=== PATIENT | male | born 1965 | race Caucasian/White ===

== ENCOUNTER 2017-02-14 14:28 | Inpatient (IN) | payer OTHER ==
[~2017-02-14] VITALS: Ht 185.4 cm; Wt 172.0 kg
[~2017-02-14 14:28] MED LIST: AMBIEN10 MG PO; CELEXA40 MG PO; CITALOPRAM HBR40 MG PO; COUMADIN10 MG PO; COZAAR50 MG PO; CRESTOR10 MG PO; Colace PO; Coumadin,Jantoven PO; Cozaar PO; DILTIAZEM 24HR240 M1 PO; GLUCOPHAGE500 MG PO; K-DUR20 MEQ PO; LASIX40 MG PO; Levaquin PO; Milk Of Magnesia,MOM PO; NATURAL VITAMI500 MG PO; NOVOLOG PE100 UNITS/ SC; Nitrostat,NitroQuick SL; SIMVASTATIN10 MG PO; Senokot,Sennagen PO; TOPAMAX100 MG PO; TOPAMAX200 MG PO; TOPIRAGEN200 MG PO; TRICOR145 MG PO; Topamax PO; Toprol XL PO; VITAMIN C500 M1 PO; VITAMIN D; VITAMIN D-32000 UNIT PO; VITAMIN D400 UNI1 PO; WARFARIN SODIUM10 MG PO; WARFARIN SODIUM5 MG PO; Warfarin Sodium PO; ZOCOR10 MG PO; Zocor PO; celeXA PO
[2017-02-14] MEDS ORDERED: TOPAMAX200 MG PO (15:22)
[2017-02-14] MEDS ORDERED: TOPAMAX100 MG PO (15:23)
[2017-02-14] MEDS ORDERED: LOSARTAN POTAS100 MG PO (15:23)
[2017-02-14] MEDS ORDERED: CITALOPRAM HBR40 MG PO (15:24)
[2017-02-14] MEDS ORDERED: CARVEDILOL12.5 MG PO (15:24)
[2017-02-14] MEDS ORDERED: FUROSEMIDE20 MG PO (15:24)
[2017-02-14] MEDS ORDERED: BYSTOLIC20 MG PO (15:25)
[2017-02-14] MEDS ORDERED: JANUVIA100 MG PO (15:25)
[2017-02-14] MEDS ORDERED: INVOKANA300 MG PO (15:25)
[2017-02-14] MEDS ORDERED: WARFARIN SODIUM5 MG PO (15:26)
[2017-02-14] MEDS ORDERED: JANTOVEN5 MG PO (15:26)
[2017-02-14 15:32] LABS: BASOPHIL COUNT 0.1 K/uL (0-0.1); EOSINOPHIL (%) 0 % (0-5); HEMATOCRIT 50.4 % (38.0-50.0); IMMATURE GRANULOCYTE (%) 1.5 % (0.0-0.7); IMMATURE GRANULOCYTE COUNT 0.3 K/uL; INSTRUMENT ABS NEUTROPHIL CT 15.5 K/uL; LYMPHOCYTE COUNT 1.1 K/uL (1.0-2.8); MCH 28.6 PG (29.0-34.0); MCHC 31.9 G/DL (30.0-36.0); MCV 89.5 FL (86-99); MEAN PLAT.VOLUME 11.8 uM^3 (9.0-12.4); MONOCYTE (%) 7.4 % (3-12); MONOCYTE COUNT 1.4 K/uL (0-0.8); NEUTROPHIL (%) 84.5 % (45-76); NEUTROPHIL COUNT 15.5 K/uL (1.8-6.4); PLATELET COUNT 302 K/uL (156-360); RBC DIS.WIDTH-CV 13.8 % (11.8-14.6); RBC DIS.WIDTH-SD 45.5 % (39-53); RED BLOOD COUNT 5.63 M/uL (4.00-5.50); WHITE BLOOD COUNT 18.3 K/uL (4.1-10.2)
[2017-02-14 15:43] LABS: CHLORIDE 109 mEq/L (99-109); POTASSIUM 3.7 mEq/L (3.7-5.4); SODIUM 138 mEq/L (136-147)
[2017-02-14 15:45] LABS: GLUCOSE 156 mg/dL (70-99)
[2017-02-14 15:46] LABS: ANION GAP 9 MEQ/L (2-14)
[2017-02-14 15:49] LABS: GFR ESTIMATE (CALCULATED) > 59 mL/min/; UREA NITROGEN (BUN) 26 mg/dL (9-23)
[2017-02-14 17:09] LABS: C DIFF TOXIN NEGATIVE (NEGATIVE)
[2017-02-14 17:10] LABS: PROBE CHECK PASS; SPECIMEN PROCESSING CONTROL PASS
[2017-02-14 17:13] LABS: ADD MIUA? NO; BILIRUBIN NEGATIVE; BLOOD NEGATIVE; COLOR YELLOW ((YELLOW)); GLUCOSE (STRIP) >=500; KETONES NEGATIVE; LEUKOCYTES NEGATIVE; NITRITE NEGATIVE; PROTEIN (STRIP) NEGATIVE; SPECIFIC GRAVITY 1.032 (1.000-1.030); UCUL ADDED? NO; UROBILINOGEN 0.2 MG/DL (0.2-1.0)
[2017-02-14 22:54] LABS: BASE EXCESS -3.5 mEq/L (-3 to +3); BICARBONATE 22.1 mEq/L (22-26); CARBOXY HGB 1.8 % (0-5); COMMENTS - BLOOD GASES C+A+; DEVICE NC; METHEMOGLOBIN 1.3 % (0-1.5); O2 FLOW 1 L/MIN; PCO2 41 mm Hg (35-45); PO2 72 mm Hg (80-100); SITE RR; pH 7.34 (7.35-7.45)
[2017-02-14 22:55] LABS: TOTAL RESP RATE 20 resp/min
[2017-02-14 23:36] LABS: INTER. NORMALIZED RATIO 1.9; PROTHROMBIN TIME 20.9 SEC (10.2-12.9)
[2017-02-15 00:36] VITALS: BP 118/60
[2017-02-15 04:36] VITALS: BP 118/67
[2017-02-15 06:00] LABS: HEMATOCRIT 46.4 % (38.0-50.0); MCH 28.3 PG (29.0-34.0); MCHC 31.3 G/DL (30.0-36.0); MCV 90.4 FL (86-99); MEAN PLAT.VOLUME 11.7 uM^3 (9.0-12.4); PLATELET COUNT 256 K/uL (156-360); RBC DIS.WIDTH-CV 13.7 % (11.8-14.6); RBC DIS.WIDTH-SD 45.8 % (39-53); RED BLOOD COUNT 5.13 M/uL (4.00-5.50); WHITE BLOOD COUNT 19.6 K/uL (4.1-10.2)
[2017-02-15 06:24] LABS: ALKALINE PHOSPHATASE 63 IU/L (3-129); ANION GAP 9 MEQ/L (2-14); CHLORIDE 108 MEQ/L (99-109); GFR ESTIMATE (CALCULATED) > 59 mL/min/; GLUCOSE 155 mg/dL (70-99); POTASSIUM 3.6 MEQ/L (3.7-5.4); SAMPLE HEMOLYSIS CHECK 0; SAMPLE ICTERIC CHECK 0; SAMPLE LIPEMIA CHECK 0; SODIUM 140 MEQ/L (136-147); TOTAL BILIRUBIN 0.4 MG/DL (0.0-1.0); UREA NITROGEN (BUN) 22 mg/dL (9-23)
[2017-02-15 06:41] LABS: Estimated Average Glucose 220 mg/dL (70-123)
[2017-02-15 06:44] LABS: HEMOGLOBIN A1c (GLYCOHEMOGLOB) 9.3 % HGB (Below 5.7)
[2017-02-15 08:30] VITALS: BP 150/72
[2017-02-15 09:23] LABS: PROTHROMBIN TIME 22.6 SEC (10.2-12.9)
[2017-02-15 12:00] VITALS: BP 143/78
[2017-02-15 12:43] LABS: POINT-OF-CARE METER ID UU14162513
[2017-02-15 19:39] VITALS: BP 137/73
[2017-02-16] VITALS (8 sets, daily range): BP systolic 129–177; BP diastolic 64–92
[2017-02-16 05:18] LABS: BASOPHIL COUNT 0.1 K/uL (0-0.1); EOSINOPHIL (%) 0 % (0-5); HEMATOCRIT 44.5 % (38.0-50.0); IMMATURE GRANULOCYTE (%) 0.9 % (0.0-0.7); IMMATURE GRANULOCYTE COUNT 0.2 K/uL; INSTRUMENT ABS NEUTROPHIL CT 14.3 K/uL; MCH 29.7 PG (29.0-34.0); MCHC 32.8 G/DL (30.0-36.0); MCV 90.4 FL (86-99); MEAN PLAT.VOLUME 11.9 uM^3 (9.0-12.4); MONOCYTE (%) 10.2 % (3-12); MONOCYTE COUNT 1.8 K/uL (0-0.8); NEUTROPHIL COUNT 14.3 K/uL (1.8-6.4); PLATELET COUNT 224 K/uL (156-360); RBC DIS.WIDTH-CV 13.8 % (11.8-14.6); RBC DIS.WIDTH-SD 45.9 % (39-53); RED BLOOD COUNT 4.92 M/uL (4.00-5.50); WHITE BLOOD COUNT 17.2 K/uL (4.1-10.2)
[2017-02-16 05:30] LABS: INTER. NORMALIZED RATIO 1.9; PROTHROMBIN TIME 21.7 SEC (10.2-12.9)
[2017-02-16 08:14] LABS: ALKALINE PHOSPHATASE 64 IU/L (3-129); ANION GAP 9 MEQ/L (2-14); CHLORIDE 110 MEQ/L (99-109); GFR ESTIMATE (CALCULATED) > 59 mL/min/; GLUCOSE 149 mg/dL (70-99); POTASSIUM 3.6 MEQ/L (3.7-5.4); SAMPLE HEMOLYSIS CHECK 0; SAMPLE ICTERIC CHECK 0; SAMPLE LIPEMIA CHECK 0; SODIUM 142 MEQ/L (136-147); TOTAL BILIRUBIN 0.4 MG/DL (0.0-1.0); UREA NITROGEN (BUN) 18 mg/dL (9-23)
[2017-02-16 08:26] LABS: POINT-OF-CARE METER ID UU14162513
[2017-02-16] MEDS ORDERED: WARFARIN SODIUM5 MG PO (12:34)
[2017-02-16] MEDS ORDERED: TOPAMAX200 MG PO (12:35)
[2017-02-16 13:47] LABS: POINT-OF-CARE METER ID UU13113700
[2017-02-17 03:45] VITALS: BP 144/83
[2017-02-17 05:41] LABS: INTER. NORMALIZED RATIO 1.7; PROTHROMBIN TIME 19.2 SEC (10.2-12.9)
[2017-02-17 07:32] VITALS: BP 165/96
[2017-02-17 09:01] LABS: POINT-OF-CARE METER ID UU14162513
[2017-02-17 12:14] VITALS: BP 159/68
[2017-02-17] MEDS ORDERED: LIPITOR40 MG PO (12:16)
[2017-02-17 16:39] VITALS: BP 185/95
[2017-02-17 16:51] LABS: POINT-OF-CARE METER ID UU14162513
[2017-02-17 20:00] VITALS: BP 158/83
[2017-02-17 21:31] LABS: POINT-OF-CARE METER ID UU13113700
[2017-02-18 00:41] VITALS: BP 159/103
[2017-02-18 04:00] VITALS: BP 159/115
[2017-02-18 08:30] VITALS: BP 174/99
[2017-02-18 08:32] LABS: POINT-OF-CARE METER ID UU13113831
[2017-02-18 08:50] LABS: INTER. NORMALIZED RATIO 1.8; PROTHROMBIN TIME 20.5 SEC (10.2-12.9)
[2017-02-18 12:40] VITALS: BP 142/90
[2017-02-18 13:10] LABS: POINT-OF-CARE METER ID UU13113700
[2017-02-18 16:38] VITALS: BP 171/90
[2017-02-18 17:13] LABS: POINT-OF-CARE METER ID UU13113700
[2017-02-18 21:36] VITALS: BP 158/89
[2017-02-19] VITALS (7 sets, daily range): BP systolic 145–182; BP diastolic 90–100
[2017-02-19 02:22] LABS: CHLORIDE 109 mEq/L (99-109); POTASSIUM 3.8 mEq/L (3.7-5.4); SODIUM 142 mEq/L (136-147)
[2017-02-19 02:23] LABS: MAGNESIUM 1.9 mg/dL (1.3-2.7)
[2017-02-19 02:24] LABS: GLUCOSE 137 mg/dL (70-99)
[2017-02-19 02:25] LABS: ANION GAP 10 MEQ/L (2-14)
[2017-02-19 02:28] LABS: GFR ESTIMATE (CALCULATED) > 59 mL/min/
[2017-02-19 02:29] LABS: UREA NITROGEN (BUN) 15 mg/dL (9-23)
[2017-02-19 06:23] LABS: INTER. NORMALIZED RATIO 1.9; PROTHROMBIN TIME 21.5 SEC (10.2-12.9)
[2017-02-19 06:59] LABS: TROP-I INTERPRETATION NEGATIVE; TROPONIN-I 0.01 ng/mL (0.0-0.30)
[2017-02-19 07:39] LABS: POINT-OF-CARE METER ID UU13113700
[2017-02-19 07:53] LABS: POINT-OF-CARE METER ID UU13113831
[2017-02-19 08:19] LABS: ANION GAP 10 MEQ/L (2-14); CHLORIDE 110 MEQ/L (99-109); GFR ESTIMATE (CALCULATED) > 59 mL/min/; GLUCOSE 138 mg/dL (70-99); MAGNESIUM 2.1 mg/dl (1.3-2.7); POTASSIUM 4.4 MEQ/L (3.7-5.4); SAMPLE HEMOLYSIS CHECK 2; SAMPLE ICTERIC CHECK 0; SAMPLE LIPEMIA CHECK 0; SODIUM 142 MEQ/L (136-147); UREA NITROGEN (BUN) 14 mg/dL (9-23)
[2017-02-19 11:15] LABS: MCH 29.2 PG (29.0-34.0); MCHC 32.9 G/DL (30.0-36.0); MCV 88.7 FL (86-99); MEAN PLAT.VOLUME 11.6 uM^3 (9.0-12.4); PLATELET COUNT 272 K/uL (156-360); RBC DIS.WIDTH-CV 13.9 % (11.8-14.6); RBC DIS.WIDTH-SD 44.7 % (39-53); RED BLOOD COUNT 5.41 M/uL (4.00-5.50); WHITE BLOOD COUNT 8.4 K/uL (4.1-10.2)
[2017-02-19] MEDS ORDERED: AMOX TR-K CLV1 EAC4 PO (11:19)
[2017-02-19 11:38] LABS: ANION GAP 8 MEQ/L (2-14); CHLORIDE 110 MEQ/L (99-109); GFR ESTIMATE (CALCULATED) > 59 mL/min/; GLUCOSE 162 mg/dL (70-99); POTASSIUM 3.9 MEQ/L (3.7-5.4); SAMPLE HEMOLYSIS CHECK 0; SAMPLE ICTERIC CHECK 0; SAMPLE LIPEMIA CHECK 0; SODIUM 143 MEQ/L (136-147); UREA NITROGEN (BUN) 13 mg/dL (9-23)
[2017-02-19 11:43] LABS: POINT-OF-CARE METER ID UU13113700
[2017-02-19 11:43] LABS: TROP-I INTERPRETATION NEGATIVE; TROPONIN-I 0.01 ng/mL (0.0-0.30)
[2017-02-19 16:44] LABS: POINT-OF-CARE METER ID UU13113700
== END 2017-02-19 20:43 | disposition home health service (06) | DRG 602 ==
LOC: EME 14:28 → ENRESERV 16:37 → CANRESERV 16:41 → ENRESERV 16:41 → 5WEST 22:26 → EDOF 22:26 → ENRESERV 22:27 → 5WEST 23:59 → ENRESERV 02-16 16:47 → CANRESERV 02-17 01:42 → ENRESERV 02-17 01:42 → CANRESERV 02-19 08:26 → ENRESERV 02-19 08:26 → 5WEST 02-19 20:43
PROVIDERS: Emergency Medicine; Hospitalist; Internal Medicine; Nurse Practitioner Adult Health; Physician Assistant Medical
PROC: 0H9KXZZ Drainage of Right Lower Leg Skin, External Approach (ICD-10-PCS; principal; 2017-02-17)
DX: L02.415 Cutaneous abscess of right lower limb (principal); R19.7 Diarrhea, unspecified; L03.115 Cellulitis of right lower limb; I26.99 Other pulmonary embolism without acute cor pulmonale; E66.01 Morbid (severe) obesity due to excess calories; I10 Essential (primary) hypertension; Z68.43 Body mass index [BMI] 50.0-59.9, adult; Z86.711 Personal history of pulmonary embolism; G47.33 Obstructive sleep apnea (adult) (pediatric); E86.0 Dehydration; E78.5 Hyperlipidemia, unspecified; F17.210 Nicotine dependence, cigarettes, uncomplicated; Z79.01 Long term (current) use of anticoagulants; B35.6 Tinea cruris; Z99.3 Dependence on wheelchair; Z74.01 Bed confinement status; I87.8 Other specified disorders of veins; I47.2 Ventricular tachycardia; Z91.19 Patient's noncompliance with other medical treatment and regimen; L03.116 Cellulitis of left lower limb; E11.9 Type 2 diabetes mellitus without complications
CPT/HCPCS: 36600; 71275; 74176; 80048; 80048 91; 80053; 80202; 81003; 82272; 82803; 82948; 83036; 83605; 83630; 83735; 84443; 84484; 85025; 85027; 85379; 85610; 87070; 87075; 87076; 87177; 87205; 87329; 87493; 87506; 93005; 93306; 93970; 97530 GO; 97530 GP; 99281; 99285; G0378; J0295; J0360; J0690; J1170; J3370; J7030; J7050

== ENCOUNTER 2017-02-22 16:29 | Observation (INO) | payer OTHER ==
[~2017-02-22] VITALS: Ht 185.4 cm; Wt 163.7 kg
[~2017-02-22 16:29] MED LIST changes: +AMOX TR-K CLV1 EAC4 PO; +BYSTOLIC20 MG PO; +CARVEDILOL12.5 MG PO; +FUROSEMIDE20 MG PO; +INVOKANA300 MG PO; +JANTOVEN5 MG PO; +JANUVIA100 MG PO; +LIPITOR40 MG PO; +LOSARTAN POTAS100 MG PO
[2017-02-22 16:46] LABS: MCH 28.3 PG (29.0-34.0); MCHC 31.7 G/DL (30.0-36.0); MCV 89.4 FL (86-99); MEAN PLAT.VOLUME 11.4 uM^3 (9.0-12.4); PLATELET COUNT 267 K/uL (156-360); RBC DIS.WIDTH-CV 14.1 % (11.8-14.6); RBC DIS.WIDTH-SD 45.8 % (39-53); RED BLOOD COUNT 5.37 M/uL (4.00-5.50); WHITE BLOOD COUNT 9.4 K/uL (4.1-10.2)
[2017-02-22 17:00] LABS: CHLORIDE 109 mEq/L (99-109); POTASSIUM 3.9 mEq/L (3.7-5.4); SODIUM 141 mEq/L (136-147)
[2017-02-22 17:02] LABS: GLUCOSE 135 mg/dL (70-99)
[2017-02-22 17:03] LABS: ANION GAP 9 MEQ/L (2-14)
[2017-02-22 17:05] LABS: GFR ESTIMATE (CALCULATED) > 59 mL/min/
[2017-02-22 17:07] LABS: UREA NITROGEN (BUN) 21 mg/dL (9-23)
[2017-02-22 21:20] VITALS: BP 129/88
[2017-02-22 21:48] LABS: POINT-OF-CARE METER ID UU13113700
[2017-02-22 21:48] LABS: INTER. NORMALIZED RATIO 3.5; PROTHROMBIN TIME 40.1 SEC (10.2-12.9)
[2017-02-23 00:29] VITALS: BP 111/59
[2017-02-23 04:21] VITALS: BP 163/100
[2017-02-23 05:40] LABS: HEMATOCRIT 46.1 % (38.0-50.0); MCH 29.8 PG (29.0-34.0); MCHC 32.5 G/DL (30.0-36.0); MCV 91.7 FL (86-99); MEAN PLAT.VOLUME 11.9 uM^3 (9.0-12.4); PLATELET COUNT 223 K/uL (156-360); RBC DIS.WIDTH-CV 14.4 % (11.8-14.6); RBC DIS.WIDTH-SD 47.8 % (39-53); RED BLOOD COUNT 5.03 M/uL (4.00-5.50); WHITE BLOOD COUNT 8.5 K/uL (4.1-10.2)
[2017-02-23 05:49] LABS: PROTHROMBIN TIME 34.1 SEC (10.2-12.9)
[2017-02-23 06:10] LABS: ANION GAP 8 MEQ/L (2-14); CHLORIDE 108 MEQ/L (99-109); GFR ESTIMATE (CALCULATED) 57 mL/min/; GLUCOSE 128 mg/dL (70-99); POTASSIUM 3.4 MEQ/L (3.7-5.4); SAMPLE HEMOLYSIS CHECK 0; SAMPLE ICTERIC CHECK 0; SAMPLE LIPEMIA CHECK 0; SODIUM 142 MEQ/L (136-147); UREA NITROGEN (BUN) 21 mg/dL (9-23)
[2017-02-23 07:42] VITALS: BP 136/64
[2017-02-23 08:45] LABS: POINT-OF-CARE METER ID UU13113831
[2017-02-23 12:15] VITALS: BP 120/70
[2017-02-23 12:58] LABS: POINT-OF-CARE METER ID UU13113831
[2017-02-23] MEDS ORDERED: NICOTINE PATCH1 EAC1 TD (15:29)
[2017-02-23] MEDS ORDERED: NYSTOP60 GM TP (15:30)
[2017-02-23 16:00] VITALS: BP 140/88
[2017-02-23 17:58] LABS: POINT-OF-CARE METER ID UU13113831
[2017-02-23 20:31] VITALS: BP 135/75
[2017-02-23 21:07] LABS: POINT-OF-CARE METER ID UU13113831
[2017-02-24 00:53] VITALS: BP 164/89
[2017-02-24 04:09] VITALS: BP 135/88
[2017-02-24 05:53] LABS: INTER. NORMALIZED RATIO 2.2; PROTHROMBIN TIME 25.2 SEC (10.2-12.9)
[2017-02-24 07:49] LABS: POINT-OF-CARE METER ID UU13113700
[2017-02-24 11:52] VITALS: BP 134/80
[2017-02-24 12:05] LABS: POINT-OF-CARE METER ID UU13113831
[2017-02-24 15:15] VITALS: BP 137/83
[2017-02-24 17:41] LABS: POINT-OF-CARE METER ID UU14162513
== END 2017-02-24 18:55 ==
LOC: EME 16:29 → EDOF 19:13 → 5WEST 19:13 → ENRESERV 19:19 → 5WEST 21:03
PROVIDERS: Emergency Medicine; Hospitalist
DX: R26.2 Difficulty in walking, not elsewhere classified (principal); L02.415 Cutaneous abscess of right lower limb; E66.01 Morbid (severe) obesity due to excess calories; Z68.42 Body mass index [BMI] 45.0-49.9, adult; Z86.711 Personal history of pulmonary embolism; E11.9 Type 2 diabetes mellitus without complications; F17.200 Nicotine dependence, unspecified, uncomplicated; B37.89 Other sites of candidiasis; E87.6 Hypokalemia; I10 Essential (primary) hypertension; G47.30 Sleep apnea, unspecified; E78.5 Hyperlipidemia, unspecified; Z79.01 Long term (current) use of anticoagulants; Z74.09 Other reduced mobility; Z74.1 Need for assistance with personal care; Z82.49 Family history of ischemic heart disease and other diseases of the circulatory system; Z80.3 Family history of malignant neoplasm of breast; Z80.1 Family history of malignant neoplasm of trachea, bronchus and lung
CPT/HCPCS: 80048; 82948; 85027; 85610; 94799; 99281; 99284; G0378; J1815; J2270